=== PATIENT | female | born 1965 | race Caucasian/White ===

== ENCOUNTER 2017-05-05 13:11 | Observation (INO) | payer BC ==
--- NOTE | 2017-05-05 13:14 | PDOC ---
History of Present Illness - General Stated Complaint: WEAKNESS Time Seen by Provider: 05/05/17 13:14 Past History - Past Medical History Allergies/Adverse Reactions: Allergies Allergy/AdvReac Type Severity Reaction Status Date / Time No Known Allergies Allergy Verified 02/03/14 08:37 Home Medications: Ambulatory Orders Aspirin [ASA -] 81 mg PO DAILY 02/02/14 Benztropine Mesylate 1 mg PO BID 02/02/14 Divalproex [Depakote -] 1,500 mg PO HS 02/02/14 Divalproex [Depakote -] 500 mg PO DAILY 02/02/14 Olanzapine [Zyprexa] 10 mg PO HS 02/02/14 Olmesartan/Hydrochlorothiazide [Benicar Hct 20-12.5 mg Tablet] 1 each PO DAILY 02/02/14 Venlafaxine HCl ER [Effexor Xr -] 75 mg PO HS 02/02/14 Venlafaxine HCl ER [Effexor Xr -] 150 mg PO DAILY 02/02/14 Anemia: No Asthma: No Cancer: No Cardiac Disorders: No CVA: No COPD: No CHF: No Dementia: No Diabetes: No GI Disorders: No Disorders: No HTN: Yes Hypercholesterolemia: No Liver Disease: No Psychiatric Problems: Yes (BIPOLAR) Seizures: No Thyroid Disease: No - Surgical History Abdominal Surgery: No Appendectomy: No Cardiac Surgery: No Cholecystectomy: No Lung Surgery: No Neurologic Surgery: No Orthopedic Surgery: Yes (ARTHROSCOPY RT KNEE) - Immunization History Immunization Up to Date: Yes - Suicide/Smoking/Psychosocial Hx Smoking Status: No Smoking History: Never smoked Number of Cigarettes Smoked Daily: 0 Hx Alcohol Use: Yes (OCCASIONAL) Drug/Substance Use Hx: No Substance Use Type: Alcohol Hx Substance Use Treatment: No
--- NOTE | 2017-05-05 13:14 | PDOC ---
History of Present Illness - General Stated Complaint: WEAKNESS Time Seen by Provider: 05/05/17 13:14 - History of Present Illness Initial Comments: 05/05/17 13:14 Ms. Bernard is a 51 year old female with a significant past medical history of hypertension, morbid obesity, and Bipolar Disorder who presents to the emergency department from PCP after experiencing palpitations and high blood pressure to the 210's and 200's systolic earlier today. She reports that she was at work when her palpitations started and then presented to the school nurse who took her blood pressure. She experienced some dizziness at this time. She then went to her PCP for evaluation who advised follow-up at the ER. She also reports some increased frequency lately when peeing. The patient denies chest pain, shortness of breath, and headache. Denies fever, chills, nausea, vomit, diarrhea and constipation. Denies dysuria, urgency and hematuria. Allergies: NKDA Past History - Past Medical History Allergies/Adverse Reactions: Allergies Allergy/AdvReac Type Severity Reaction Status Date / Time No Known Allergies Allergy Verified 05/05/17 13:32 Home Medications: Ambulatory Orders Benztropine Mesylate 1 mg PO BID 02/02/14 Divalproex [Depakote -] 1,500 mg PO HS 02/02/14 Divalproex [Depakote -] 500 mg PO DAILY 02/02/14 Olanzapine [Zyprexa] 10 mg PO DAILY 02/02/14 Venlafaxine HCl ER [Effexor Xr -] 150 mg PO BID 02/02/14 Azilsartan Med/Chlorthalidone [Edarbyclor 40-12.5 mg Tablet] 1 each PO DAILY 05/12 Anemia: No Asthma: No Cancer: No Cardiac Disorders: No CVA: No COPD: No CHF: No Dementia: No Diabetes: No GI Disorders: No Disorders: No HTN: Yes Hypercholesterolemia: No Liver Disease: No Psychiatric Problems: Yes (BIPOLAR) Seizures: No Thyroid Disease: No - Surgical History Abdominal Surgery: No Appendectomy: No Cardiac Surgery: No Cholecystectomy: No Lung Surgery: No Neurologic Surgery: No Orthopedic Surgery: Yes (ARTHROSCOPY RT KNEE) - Immunization History Immunization Up to Date: Yes - Suicide/Smoking/Psychosocial Hx Smoking Status: No Smoking History: Never smoked Number of Cigarettes Smoked Daily: 0 Hx Alcohol Use: Yes (OCCASIONAL) Drug/Substance Use Hx: No Substance Use Type: Alcohol Hx Substance Use Treatment: No Review of Systems - Review of Systems Comments:: 05/05/17 13:14 GENERAL/CONSTITUTIONAL: No fever or chills. No weakness. HEAD, EYES, EARS, NOSE AND THROAT: No change in vision. No ear pain or discharge. No sore throat. CARDIOVASCULAR: +Heart racing and palpitations reported as of this morning. No chest pain or shortness of breath RESPIRATORY: No cough, wheezing, or hemoptysis. GASTROINTESTINAL: No nausea, vomiting, diarrhea or constipation. GENITOURINARY: +Increased frequency lately with odor. No dysuria MUSCULOSKELETAL: No joint or muscle swelling or pain. No neck or back pain. SKIN: No rash NEUROLOGIC: No headache, vertigo, loss of consciousness, or change in strength/ sensation. ENDOCRINE: No increased thirst. No abnormal weight change HEMATOLOGIC/LYMPHATIC: No anemia, easy bleeding, or history of blood clots. ALLERGIC/IMMUNOLOGIC: No hives or skin allergy. *Physical Exam - Physical Exam Comments: 05/05/17 13:14 GENERAL: Awake, alert, and fully oriented, in no acute distress HEAD: No signs of trauma, normocephalic, atraumatic EYES: PERRLA, EOMI, sclera anicteric, conjunctiva clear ENT: Auricles normal inspection, hearing grossly normal, nares patent, oropharynx clear without exudates. Moist mucosa NECK: Normal ROM, supple, no lymphadenopathy, JVD, or masses LUNGS: No distress, speaks full sentences, clear to auscultation bilaterally HEART: +Tachycardic, normal S1 and S2, no murmurs, rubs or gallops, peripheral pulses normal and equal bilaterally. ABDOMEN: Soft, nontender, normoactive bowel sounds. No guarding, no rebound. No masses EXTREMITIES: Normal inspection, Normal range of motion, no edema. No clubbing or cyanosis. NEUROLOGICAL: Cranial nerves II through XII grossly intact. Normal speech, normal gait, no focal sensorimotor deficits SKIN: Warm, Dry, normal turgor, no rashes or lesions noted. ED Treatment Course - LABORATORY CBC & Chemistry Diagram: 05/05/17 14:00 05/05/17 14:00 Medical Decision Making - Medical Decision Making 05/05/17 14:55 Patient presents complaining of palpitations and high blood pressure earlier today. Reports has had increased urinary frequency and altered odor lately however UA clear. Labs as below. Case discussed with PCP onsite who would like admit for carotid doppler. Will follow recommendations. Laboratory Results - last 24 hr 05/05/17 05/05/17 05/05/17 14:00 14:00 14:00 WBC 7.0 RBC 4.77 Hgb 13.5 D Hct 40.4 MCV 84.6 MCH 28.4 MCHC 33.6 RDW 13.8 Plt Count 275 MPV 7.8 D Neutrophils % 63.9 Lymphocytes % 26.1 Monocytes % 7.9 Eosinophils % 1.4 Basophils % 0.7 Sodium 134 L Potassium 4.1 Chloride 96 L Carbon Dioxide 25 D Anion Gap 13 BUN 15 D Creatinine 0.5 L Creat Clearance w eGFR > 60 Random Glucose 94 Lactic Acid Calcium 9.3 Magnesium Total Bilirubin 0.3 D AST 17 D ALT 31 D Alkaline Phosphatase 78 Troponin I B-Natriuretic Peptide Total Protein 7.7 Albumin 3.9 TSH Urine Color Ltyellow Urine Appearance Slcloudy Urine pH 7.0 D Urine Protein Negative Urine Glucose (UA) Negative Urine Ketones Negative Urine Blood Negative Urine Nitrite Negative Urine Bilirubin Negative Urine Urobilinogen Negative 05/05/17 05/05/17 05/05/17 14:00 14:00 14:00 WBC RBC Hgb Hct MCV MCH MCHC RDW Plt Count MPV Neutrophils % Lymphocytes % Monocytes % Eosinophils % Basophils % Sodium Potassium Chloride Carbon Dioxide Anion Gap BUN Creatinine Creat Clearance w eGFR Random Glucose Lactic Acid 2.2 H* Calcium Magnesium 1.9 Total Bilirubin AST ALT Alkaline Phosphatase Troponin I < 0.02 B-Natriuretic Peptide 37.75 Total Protein Albumin TSH 1.86 Urine Color Urine Appearance Urine pH Urine Protein Urine Glucose (UA) Urine Ketones Urine Blood Urine Nitrite Urine Bilirubin Urine Urobilinogen 05/05/17 15:01 *DC/Admit/Observation/Transfer Diagnosis at time of Disposition: Tachycardia, Hypertensive emergency - Discharge Dispostion Admit: Yes - Referrals Referrals: Liliana Mckinnon MD [Primary Care Provider] -
--- NOTE | 2017-05-05 13:37 | PDOC ---
Attending Attestation - Resident Resident Name: Edgar Clements - ED Attending Attestation I have performed the following: I have examined & evaluated the patient, The case was reviewed & discussed with the resident, I agree w/resident's findings & plan, Exceptions are as noted - HPI HPI: 05/05/17 13:34 51yo F hx HTN, bipolar d/o, anxiety, depression p/w palpitations and chest pain since this morning. 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 She went to Dr. Mckinnon's office where she was found to be tachycardic to 120s and sent to the ED for admission. Pt currently denies CP or SOB. She adds that she has had malodorous urine for 3 days. Denies f/v, abd pain, LE edema, rashes, focal weakness or numbness - Physicial Exam PE: 05/05/17 13:36 GENERAL: Awake, alert, and fully oriented, in no acute distress HEAD: No signs of trauma EYES: PERRLA, EOMI, sclera anicteric, conjunctiva clear ENT: Auricles normal inspection, hearing grossly normal, nares patent, oropharynx clear without exudates. Moist mucosa NECK: Normal ROM, supple, no lymphadenopathy, JVD, or masses LUNGS: Breath sounds equal, clear to auscultation bilaterally. No wheezes, and no crackles HEART: tachy to 118 but regular, normal S1 and S2, no murmurs, rubs or gallops ABDOMEN: Soft, nontender, normoactive bowel sounds. No guarding, no rebound. No masses EXTREMITIES: Normal range of motion, no edema. No clubbing or cyanosis. No cords, erythema, or tenderness NEUROLOGICAL: Normal speech, cranial nerves intact, negative pronator drift, 5/ 5 strength in all 4 extremities, normal sensation to light touch in all 4 extremities, normal cerebellar exam, normal gait, normal reflexes and tone SKIN: Warm, Dry, normal turgor, no rashes or lesions noted. - Medical Decision Making 05/05/17 16:08 51-year-old female with a history of hypertension and bipolar disorder presents with hypertension and tachycardia to the 110s at her primary doctor's office. Patient also has complaints of chest pain and shortness of breath this morning. Dr. Mckinnon currently at the bedside and will admit the patient for further management. -labs -CXR -IVF -admit Case discussed in detail with admitting physician including history, physical exam and ancillary studies. Admitting physician has assumed care for the patient, will follow all pending diagnostics and will complete the evaluation and treatment.
[2017-05-05 14:06] LABS: BASOPHIL 0.7 % (0-2.0); EOSINOPHIL 1.4 % (0-4.5); MCH 28.4 pg (25.7-33.7); MCHC 33.6 g/dl (32.0-36.0); MEAN CELL VOLUME 84.6 fl (80-96); MEAN PLT VOLUME 7.8 fl (7.5-11.1); NEUTROPHILS 63.9 % (42.8-82.8); PLATELET COUNT 275 K/MM3 (134-434); RDW 13.8 % (11.6-15.6)
[2017-05-05 14:19] LABS: URINE APPEARANCE SLCLOUDY; URINE BILIRUBIN NEGATIVE (NEGATIVE); URINE BLOOD NEGATIVE (NEGATIVE); URINE COLOR LTYELLOW; URINE GLUCOSE (UA) NEGATIVE (NEGATIVE); URINE KETONE NEGATIVE (NEGATIVE); URINE NITRITE NEGATIVE (NEGATIVE); URINE PROTEIN NEGATIVE (NEGATIVE); URINE UROBILINOGEN NEGATIVE mg/dL (0.2-1.0)
[2017-05-05 14:31] LABS: ALBUMIN 3.9 g/dl (3.4-5.0); ANION GAP 13 (8-16); CALCIUM 9.3 mg/dL (8.5-10.1); CO2 25 mmol/L (21-32); CREATININE 0.5 mg/dL (0.55-1.02); GLUCOSE,RANDOM 94 mg/dL (74-106); MAGNESIUM 1.9 mg/dL (1.8-2.4); SGOT/AST 17 U/L (15-37)
[2017-05-05 14:32] LABS: TROPONIN I < 0.02 ng/ml (0.00-0.05)
[2017-05-05 14:39] LABS: ALK PHOS 78 U/L (45-117); BILIRUBIN,TOTAL 0.3 mg/dL (0.2-1.0); TOT PROT 7.7 g/dl (6.4-8.2)
--- NOTE | 2017-05-05 14:42 | HP ---
Admitting History and Physical - Primary Care Physician PCP: Liliana Mckinnon - Admission Chief Complaint: HTN EMERGENCY/CHEST PAIN History of Present Illness: SENT FROM MY OFFICE WITH HTN BP 180/110MMHG WITH CHEST PAIN AND TACHYCARDIA 140/ MIN, HISTORY HTN, LIPIDEMIA, DEPRESSION,ANXIETY. History Source: Patient - Past Medical History Cardiovascular: Yes: HTN, Hyperlipdemia ...LMP: 01/01/14 Psych: Yes: Anxiety - Smoking History Smoking history: Never smoked Aproximately how many cigarettes per day: 0 - Alcohol/Substance Use Hx Alcohol Use: Yes (OCCASIONAL) Home Medications - Allergies Allergies/Adverse Reactions: Allergies Allergy/AdvReac Type Severity Reaction Status Date / Time No Known Allergies Allergy Verified 05/05/17 13:32 - Home Medications Home Medications: Ambulatory Orders Benztropine Mesylate 1 mg PO BID 02/02/14 Divalproex [Depakote -] 1,500 mg PO HS 02/02/14 Divalproex [Depakote -] 500 mg PO DAILY 02/02/14 Olanzapine [Zyprexa] 10 mg PO DAILY 02/02/14 Venlafaxine HCl ER [Effexor Xr -] 150 mg PO BID 02/02/14 Azilsartan Med/Chlorthalidone [Edarbyclor 40-12.5 mg Tablet] 1 each PO DAILY 05/12 Review of Systems - Review of Systems Constitutional: reports: Diaphoresis Eyes: reports: Blurred Vision HENT: reports: No Symptoms Neck: reports: No Symptoms Cardiovascular: reports: Chest Pain, Palpitations, Shortness of Breath Respiratory: reports: SOB Gastrointestinal: reports: No Symptoms Genitourinary: reports: No Symptoms Musculoskeletal: reports: No Symptoms Integumentary: reports: No Symptoms Neurological: reports: Headache Endocrine: reports: No Symptoms Hematology/Lymphatic: reports: No Symptoms Psychiatric: reports: No Symptoms Physical Examination Vital Signs: Vital Signs Temperature 98.1 F 05/05/17 13:12 Pulse Rate 116 H 05/05/17 13:12 Respiratory Rate 22 05/05/17 13:12 Blood Pressure 167/93 05/05/17 13:12 O2 Sat by Pulse Oximetry (%) 100 05/05/17 13:20 Constitutional: Yes: Moderate Distress Eyes: Yes: WNL HENT: Yes: WNL Neck: Yes: WNL Cardiovascular: Yes: Tachycardia, Murmur Respiratory: Yes: WNL Gastrointestinal: Yes: WNL Musculoskeletal: Yes: WNL Extremities: Yes: WNL Edema: No Peripheral Pulses WNL: Yes Integumentary: Yes: WNL Wound/Incision: Yes: Clean/Dry Neurological: Yes: WNL ...Motor Strength: WNL Psychiatric: Yes: Agitated Labs: CBC, BMP 05/05/17 14:00 05/05/17 14:00 Imaging - Results Chest X-ray: Report Reviewed Problem List - Problems (1) Tachycardia Code(s): R00.0 - TACHYCARDIA, UNSPECIFIED (2) Hypertensive emergency Code(s): I16.1 - HYPERTENSIVE EMERGENCY (3) Chest pain Code(s): R07.9 - CHEST PAIN, UNSPECIFIED Qualifiers: Chest pain type: chest pain on breathing Qualified Code(s): R07.1 - Chest pain on breathing; R07.1 - Chest pain on breathing; R07.81 - Pleurodynia Assessment/Plan OBSERVATION LIPID PANEL A1C ECHO CAROTID STRESS TEST CARDIOLOGY EVAL
[2017-05-05 14:43] LABS: SGPT/ALT 31 U/L (12-78)
[2017-05-05] MEDS ORDERED: ASPIRIN 81 MG CHEWABLE TABLETS PO ONE (14:43)
[2017-05-05] MEDS ORDERED: ACETAMINOPHEN 325 MG TABLET (FP) PO PRN (14:43)
[2017-05-05 14:54] LABS: THYROID STIMULATING HORMONE 1.86 uIU/ml (0.358-3.74)
[2017-05-05 15:22] LABS: CHOLESTEROL 237 mg/dL (50-200)
[2017-05-05] MEDS ORDERED: ASPIRIN 81 MG CHEWABLE TABLETS ONE (16:07)
[2017-05-05] MEDS ORDERED: RANITIDINE HCL 150 MG TABLET (FP) ONE (16:07)
[2017-05-05] MEDS: RANITIDINE HCL 150 MG TABLET (FP) PO SCH (16:15)
[2017-05-05 17:57] VITALS: BMI 31.3
[2017-05-05 20:00] LABS: URINE LEUK ESTERASE TRACE (NEGATIVE)
[2017-05-05 20:11] LABS: CPK 214 IU/L (26-192); TROPONIN I < 0.02 ng/ml (0.00-0.05)
--- NOTE | 2017-05-05 21:44 | EKG ---
Test Reason : Blood Pressure : / mmHG Vent. Rate : 118 BPM Atrial Rate : 118 BPM P-R Int : 158 ms QRS Dur : 080 ms QT Int : 320 ms P-R-T Axes : 056 011 028 degrees QTc Int : 448 ms SINUS TACHYCARDIA NONSPECIFIC ST DEPRESSION WHEN COMPARED WITH ECG OF 16-JUN-2013 10:56, REPEAT EKG IF CLINICALLY INDICATED Confirmed by SHERIF ZIEGLER MD ([id number]) on 05/05/2017 9:44:36 PM Referred By: Confirmed By:SHERIF ZIEGLER MD
[2017-05-05 22:05] LABS: BASOPHIL 0.8 % (0-2.0); EOSINOPHIL 1.8 % (0-4.5); MCH 29.1 pg (25.7-33.7); MEAN CELL VOLUME 85.5 fl (80-96); MEAN PLT VOLUME 8.3 fl (7.5-11.1); PLATELET COUNT 303 K/MM3 (134-434); RDW 14.3 % (11.6-15.6); WHITE BLOOD COUNT 7.4 K/mm3 (4.0-10.0)
[2017-05-05] MEDS: OLANZapine 10 MG TABLET PO SCH (22:15)
[2017-05-05] MEDS: BENZTROPINE MESYLATE 1 MG TABLET (FP) PO SCH (22:15)
[2017-05-05] MEDS: ATORVASTATIN CA 10 MG TABLET (FP) PO SCH (22:15)
[2017-05-05] MEDS: DIVALPROEX SODIUM 250 MG TABLET E.C. (FP) PO SCH (22:15)
[2017-05-05] MEDS ORDERED: cefTRIAXone SODIUM 1 GM VIAL IM ONE (22:44)
[2017-05-05] MEDS ORDERED: CEFTRIAXONE 1 G/50 ML PREMIX 50 ML IVPB ONE (23:00)
[2017-05-05 23:04] LABS: URINE BACTERIA MODERATE /hpf (NEGATIVE)
[2017-05-06] MEDS ORDERED: DIPYRIDAMOLE STRESS TEST 50 MG in DEXTROSE 5%-WATER - 40 ML IVPB ONE (09:30)
[2017-05-06] MEDS ORDERED: VENLAFAXINE HCL 150 MG E.R. CAPSULE PO SCH (10:00)
[2017-05-06] MEDS: BENZTROPINE MESYLATE 1 MG TABLET (FP) PO SCH ×2 (10:17→21:25)
[2017-05-06] MEDS: DIVALPROEX SODIUM 500 MG TABLET E.C. PO SCH (10:18)
[2017-05-06] MEDS: RANITIDINE HCL 150 MG TABLET (FP) PO SCH (10:18)
--- NOTE | 2017-05-06 11:13 | CON.GU ---
Consult Consult Specialty:: Referred by:: Ino Reason for Consultation:: UTI, sepsis - History of Present Illness Chief Complaint: UTI, sepsis History of Present Illness: 51 year old female admitted to with chest pain and hypertension. She was noted to have elevated lactic acid and bacturia on admission. She denies and history and has no specific urinary complaints. WBC is 7. No fevers. - History Source History Provided By: Patient, Medical Record Limitations to Obtaining History: No Limitations - Past Medical History Cardio/Vascular: Yes: HTN, Hyperlipdemia Renal/: No: Renal Failure, Renal Inusuff, Cancer, Hematuria, Neurogenic Bladder, Renal Calculi, UTI ...LMP: 01/01/14 Psych: Yes: Anxiety - Alcohol/Substance Use Hx Alcohol Use: Yes (OCCASIONAL) - Smoking History Smoking history: Never smoked Aproximately how many cigarettes per day: 0 Home Medications - Allergies Allergies/Adverse Reactions: Allergies Allergy/AdvReac Type Severity Reaction Status Date / Time No Known Allergies Allergy Verified 05/05/17 13:32 - Home Medications Home Medications: Ambulatory Orders Benztropine Mesylate 1 mg PO BID 02/02/14 Divalproex [Depakote -] 1,500 mg PO HS 02/02/14 Divalproex [Depakote -] 500 mg PO DAILY 02/02/14 Olanzapine [Zyprexa] 10 mg PO DAILY 02/02/14 Venlafaxine HCl ER [Effexor Xr -] 150 mg PO BID 02/02/14 Azilsartan Med/Chlorthalidone [Edarbyclor 40-12.5 mg Tablet] 1 each PO DAILY 05/12 Review of Systems - Review of Systems Gastrointestinal: denies: No Symptoms, Abdominal Pain, Bloating, Constipation, Diarrhea, Dysphagia, Indigestion, Melena, Nausea, Rectal Bleeding, Vomiting, Vomiting Blood, Other Genitourinary: reports: No Symptoms. denies: Burning, Discharge, Dysuria, Flank Pain, Frequency, Hematuria, Incontinence Physical Exam- Vital Signs: Vital Signs Temperature 98 F 05/06/17 10:00 Pulse Rate 88 05/06/17 10:00 Respiratory Rate 20 05/06/17 10:00 Blood Pressure 133/76 05/06/17 10:00 O2 Sat by Pulse Oximetry (%) 96 05/06/17 06:00 Constitutional: Yes: Well Nourished, No Distress, Calm Gastrointestinal: Yes: WNL, Normal Bowel Sounds Renal/: Yes: WNL. No: Bladder Distention, CVA Tenderness - Left, CVA Tenderness - Right, Cormier Present, Hematuria, Incontinence Labs: CBC, BMP 05/05/17 21:30 Problem List - Problems (1) Bacteria in urine Assessment/Plan: No evidence of culture proven UTI or sepsis. No symptoms. no complaints. Reconsult as needed. Code(s): R82.71 - BACTERIURIA
[2017-05-06] MEDS: VALSARTAN 160 MG TABLET (UD) PO SCH (14:09)
[2017-05-06] MEDS: CHLORTHALIDONE 25 MG TABLET PO SCH (14:09)
[2017-05-06] MEDS: VENLAFAXINE HCL 75 MG E.R. CAPSULES (FP) PO SCH (14:09)
[2017-05-06] MEDS: ASPIRIN COATED 81 MG TABLET.EC PO SCH (14:09)
--- NOTE | 2017-05-06 15:38 | CON.ID ---
Consult Consult Specialty:: infectious diseases Reason for Consultation:: uti - History of Present Illness Chief Complaint: chest pain History of Present Illness: 51 year old female admitted to with chest pain and hypertension. She was noted to have elevated lactic acid and bacturia on admission. patients main c/o of chest pain though she does have some suprapubic discomfort patient currently feeling better patient denies fever or dysuria her urine report came back contaminated - History Source History Provided By: Patient, Family Member Limitations to Obtaining History: No Limitations - Past Medical History Cardio/Vascular: Yes: HTN, Hyperlipdemia Renal/: No: Renal Failure, Renal Inusuff, Cancer, Hematuria, Neurogenic Bladder, Renal Calculi, UTI ...LMP: 01/01/14 Psych: Yes: Anxiety - Alcohol/Substance Use Hx Alcohol Use: Yes (OCCASIONAL) - Smoking History Smoking history: Never smoked Aproximately how many cigarettes per day: 0 Home Medications - Allergies Allergies/Adverse Reactions: Allergies Allergy/AdvReac Type Severity Reaction Status Date / Time No Known Allergies Allergy Verified 05/05/17 13:32 - Home Medications Home Medications: Ambulatory Orders Benztropine Mesylate 1 mg PO BID 02/02/14 Divalproex [Depakote -] 1,500 mg PO HS 02/02/14 Divalproex [Depakote -] 500 mg PO DAILY 02/02/14 Olanzapine [Zyprexa] 10 mg PO DAILY 02/02/14 Venlafaxine HCl ER [Effexor Xr -] 150 mg PO BID 02/02/14 Azilsartan Med/Chlorthalidone [Edarbyclor 40-12.5 mg Tablet] 1 each PO DAILY 05/12 Review of Systems - Review of Systems Constitutional: reports: Weakness, Other Eyes: reports: No Symptoms HENT: reports: No Symptoms Neck: reports: No Symptoms Cardiovascular: reports: Chest Pain Respiratory: reports: No Symptoms Gastrointestinal: reports: No Symptoms Genitourinary: reports: No Symptoms Musculoskeletal: reports: No Symptoms Integumentary: reports: No Symptoms Neurological: reports: No Symptoms Endocrine: reports: No Symptoms Hematology/Lymphatic: reports: No Symptoms Psychiatric: reports: No Symptoms Physical Exam Vital Signs: Vital Signs Temperature 98 F 05/06/17 10:00 Pulse Rate 88 05/06/17 10:00 Respiratory Rate 20 05/06/17 10:00 Blood Pressure 133/76 05/06/17 10:00 O2 Sat by Pulse Oximetry (%) 96 05/06/17 06:00 Constitutional: Yes: Well Nourished, Calm, Mild Distress Eyes: Yes: Conjunctiva Clear Neck: Yes: Supple, Trachea Midline Cardiovascular: Yes: S1, S2 Respiratory: Yes: Regular Gastrointestinal: Yes: Normal Bowel Sounds, Soft Renal/: Yes: Other (suprapubic tenderness) Musculoskeletal: Yes: WNL Extremities: Yes: WNL Neurological: Yes: Alert, Oriented Psychiatric: Yes: Alert, Oriented Labs: CBC, BMP 05/05/17 21:30 Imaging - Results Chest X-ray: Report Reviewed, Image Reviewed Ultrasound: Report Reviewed, Image Reviewed Assessment/Plan Problem List - Problems (1) Tachycardia Code(s): R00.0 - TACHYCARDIA, UNSPECIFIED (2) Hypertensive emergency Code(s): I16.1 - HYPERTENSIVE EMERGENCY (3) Chest pain Code(s): R07.9 - CHEST PAIN, UNSPECIFIED Qualifiers: Chest pain type: chest pain on breathing Qualified Code(s): R07.1 - Chest pain on breathing; R07.1 - Chest pain on breathing; R07.81 - Pleurodynia (4) Bacteria in urine Assessment/Plan: No evidence of culture proven UTI or sepsis. No symptoms. no complaints. Reconsult as needed. Code(s): R82.71 - BACTERIURIA patient probably has asymptomatic bacteruria urine cx is contaminated plan will reorder urine will not start abx rest continue as per primary
[2017-05-06] MEDS ORDERED: CEFTRIAXONE 1 G/50 ML PREMIX 50 ML IVPB SCH (15:45)
[2017-05-06] MEDS ORDERED: CEFTRIAXONE 1 GM in DEXTROSE 5%-WATER - 50 ML IVPB SCH (15:45)
--- NOTE | 2017-05-06 15:49 | CON.CARD ---
Consult Consult Specialty:: Cardiology Referred by:: Ino Reason for Consultation:: chest pain. htn - History of Present Illness Chief Complaint: chest pain and htn History of Present Illness: 51 year old female with a pmhx of htn, hld, and bipolar disorder who presents with dizziness and htn and chest pain. As per patient, was at work and felt dizzy so checked hr bp and was 200/100 so went to pmd's office and bp was 180/ 110 and she received bp medication which than led to her feeling chest pain and tachycardia. No pnd, orthopnea, or edema. No palpitations. No chest pain or dyspnea at this time on the floor or with ambulation. No previous symptoms with exertion. - History Source History Provided By: Patient, Medical Record - Past Medical History Cardio/Vascular: Yes: HTN, Hyperlipdemia Renal/: No: Renal Failure, Renal Inusuff, Cancer, Hematuria, Neurogenic Bladder, Renal Calculi, UTI ...LMP: 01/01/14 Psych: Yes: Anxiety - Alcohol/Substance Use Hx Alcohol Use: Yes (OCCASIONAL) - Smoking History Smoking history: Never smoked Aproximately how many cigarettes per day: 0 Home Medications - Allergies Allergies/Adverse Reactions: Allergies Allergy/AdvReac Type Severity Reaction Status Date / Time No Known Allergies Allergy Verified 05/05/17 13:32 - Home Medications Home Medications: Ambulatory Orders Benztropine Mesylate 1 mg PO BID 02/02/14 Divalproex [Depakote -] 1,500 mg PO HS 02/02/14 Divalproex [Depakote -] 500 mg PO DAILY 02/02/14 Olanzapine [Zyprexa] 10 mg PO DAILY 02/02/14 Venlafaxine HCl ER [Effexor Xr -] 150 mg PO BID 02/02/14 Azilsartan Med/Chlorthalidone [Edarbyclor 40-12.5 mg Tablet] 1 each PO DAILY 05/12 Vital Signs: Vital Signs Temperature 98 F 05/06/17 10:00 Pulse Rate 88 05/06/17 10:00 Respiratory Rate 20 05/06/17 10:00 Blood Pressure 133/76 05/06/17 10:00 O2 Sat by Pulse Oximetry (%) 96 05/06/17 06:00 - Other Data Labs, Other Data: CBC, BMP 10/10/17 21:30 Troponin, BNP 05/05/17 19:20 Troponin I < 0.02 Troponin, BNP 05/05/17 19:20 Troponin I < 0.02 Imaging - Results Chest X-ray: Report Reviewed EKG: Image Reviewed Problem List - Problems (1) Chest pain Code(s): R07.9 - CHEST PAIN, UNSPECIFIED Qualifiers: Chest pain type: chest pain on breathing Qualified Code(s): R07.1 - Chest pain on breathing; R07.1 - Chest pain on breathing; R07.81 - Pleurodynia Assessment/Plan 51 year old female with a pmhx of htn, hld, and bipolar disorder who presents with dizziness and htn and chest pain. 1) Chest pain Likely was due to htn episode EKG: sinus tachycardia at 118bpm, nl axis, no significant st changes Echocardiogram with normal lvef but cannot asses valves. No murmurs on exam NST with no ischemia CE's negative Symptom free with ambulation today No further cardiac work up at this time. Carotid ultrasound no stenosis 2) HTN much improved on valsartan 320mg and chlorthalidone Continue and add additional agent such as amlodipine if needed.
[2017-05-06] MEDS: DIVALPROEX SODIUM 250 MG TABLET E.C. (FP) PO SCH (21:23)
[2017-05-06] MEDS: OLANZapine 10 MG TABLET PO SCH (21:24)
[2017-05-06] MEDS: ATORVASTATIN CA 10 MG TABLET (FP) PO SCH (21:25)
[2017-05-06] MEDS ORDERED: ONDANSETRON 4 MG/2 ML VIAL IVPB PRN (21:30)
[2017-05-06] MEDS ORDERED: VANCOMYCIN 1,250 MG in DEXTROSE 5%-WATER - 250 ML IVPB ONE (23:00)
--- NOTE | 2017-05-07 06:51 | PN ---
Progress Note, Physician Chief Complaint: AWAKE COMFORTABLE AWAITING STRESS TEST - Current Medication List Current Medications: Active Medications Acetaminophen (Tylenol -) 650 mg PO Q6H PRN PRN Reason: FEVER OR PAIN Aspirin (Ecotrin -) 81 mg PO DAILY [facility] Last Admin: 05/06/17 14:09 Dose: 81 mg Atorvastatin Calcium (Lipitor -) 10 mg PO HS [facility] Last Admin: 05/06/17 21:25 Dose: 10 mg Benztropine Mesylate (Cogentin -) 1 mg PO BID [facility] Last Admin: 05/06/17 21:25 Dose: 1 mg Chlorthalidone (Hygroton -) 25 mg PO DAILY [facility] Last Admin: 05/06/17 14:09 Dose: 25 mg Divalproex Sodium (Depakote -) 500 mg PO DAILY [facility] Last Admin: 05/06/17 10:18 Dose: 500 mg Divalproex Sodium (Depakote -) 1,500 mg PO HS [facility] Last Admin: 05/06/17 21:23 Dose: 1,500 mg Olanzapine (Zyprexa -) 10 mg PO HS [facility] Last Admin: 05/06/17 21:24 Dose: 10 mg Ondansetron HCl (Zofran Injection) 4 mg IVPB Q6H PRN PRN Reason: NAUSEA AND/OR VOMITING Ranitidine HCl (Zantac -) 150 mg PO DAILY [facility] Last Admin: 05/06/17 10:18 Dose: 150 mg Valsartan (Diovan -) 320 mg PO DAILY [facility] Last Admin: 05/06/17 14:09 Dose: 320 mg Venlafaxine HCl (Effexor Xr -) 150 mg PO DAILY [facility] Last Admin: 05/06/17 14:09 Dose: 150 mg - Objective Vital Signs: Vital Signs Temperature 98.6 F 05/07/17 05:44 Pulse Rate 77 05/07/17 05:44 Respiratory Rate 20 05/07/17 05:44 Blood Pressure 141/84 05/07/17 05:44 O2 Sat by Pulse Oximetry (%) 97 05/07/17 00:17 Constitutional: Yes: Mild Distress Eyes: Yes: WNL HENT: Yes: WNL Neck: Yes: WNL Cardiovascular: Yes: Pulse Irregular Respiratory: Yes: WNL Genitourinary: Yes: WNL Musculoskeletal: Yes: WNL Extremities: Yes: WNL Edema: Yes Edema: LLE: Trace, RLE: Trace Peripheral Pulses WNL: Yes Integumentary: Yes: WNL Wound/Incision: Yes: Clean/Dry Neurological: Yes: WNL ...Motor Strength: WNL Psychiatric: Yes: WNL Labs: CBC, BMP 05/05/17 21:30 Problem List - Problems (1) Tachycardia Code(s): R00.0 - TACHYCARDIA, UNSPECIFIED (2) Hypertensive emergency Code(s): I16.1 - HYPERTENSIVE EMERGENCY (3) Chest pain Code(s): R07.9 - CHEST PAIN, UNSPECIFIED Qualifiers: Chest pain type: chest pain on breathing Qualified Code(s): R07.1 - Chest pain on breathing; R07.1 - Chest pain on breathing; R07.81 - Pleurodynia Assessment/Plan AWAIT STRESS TEST KEEP ON TELEMETRY FOR MONITORING DC PLANNING TOMORROW
[2017-05-07] MEDS: ASPIRIN COATED 81 MG TABLET.EC PO SCH (09:16)
[2017-05-07] MEDS: VENLAFAXINE HCL 75 MG E.R. CAPSULES (FP) PO SCH ×2 (09:17→14:34)
[2017-05-07] MEDS: DIVALPROEX SODIUM 500 MG TABLET E.C. PO SCH ×2 (09:17→14:34)
[2017-05-07] MEDS: VALSARTAN 160 MG TABLET (UD) PO SCH (09:17)
[2017-05-07] MEDS: RANITIDINE HCL 150 MG TABLET (FP) PO SCH (09:17)
[2017-05-07] MEDS: CHLORTHALIDONE 25 MG TABLET PO SCH ×2 (09:18→14:34)
[2017-05-07] MEDS: BENZTROPINE MESYLATE 1 MG TABLET (FP) PO SCH ×2 (09:18→14:34)
--- NOTE | 2017-05-07 11:21 | DS ---
Physical Examination Vital Signs: Vital Signs Temperature 97.3 F L 05/07/17 10:00 Pulse Rate 105 H 05/07/17 10:00 Respiratory Rate 20 05/07/17 10:00 Blood Pressure 157/90 05/07/17 10:00 O2 Sat by Pulse Oximetry (%) 97 05/07/17 09:00 Findings/Remarks: AWAKE ALERT FEELING BETTER Constitutional: Yes: No Distress Eyes: Yes: WNL HENT: Yes: WNL Neck: Yes: WNL Cardiovascular: Yes: WNL Respiratory: Yes: WNL Gastrointestinal: Yes: WNL Renal/: Yes: WNL Musculoskeletal: Yes: WNL Extremities: Yes: WNL Edema: No Peripheral Pulses WNL: Yes Integumentary: Yes: WNL Wound/Incision: Yes: Clean/Dry Neurological: Yes: WNL ...Motor Strength: WNL Psychiatric: Yes: WNL Labs: CBC, BMP 05/05/17 21:30 Discharge Summary Reason For Visit: HYPERTENSIVE EMERGENCY; TACHYCARDIA Current Active Problems Bacteria in urine (Acute) Chest pain (Acute) Hypertensive emergency (Acute) Tachycardia (Acute) Procedures: Principal: STRESS TEST Other Procedures: ECHO/CAROTID Hospital Course: ADMITTED FOR ACUTE CORONARY SYNDROME, STRESS TEST NORMAL, ECHO NORMAL, HYPERTENSIVE CRISIS, NOW STABLE. WILL CHECK 24 HOUR VMA/CATECHOLAMINE, F/U OUTPATIENT Condition: Improved - Instructions Diet, Activity, Other Instructions: LOW SODIUM/LOW FAT SEE DR MCKINNON 1 WEEK Referrals: Liliana Mckinnon MD [Primary Care Provider] - Disposition: HOME - Home Medications Comprehensive Discharge Medication List: Ambulatory Orders Benztropine Mesylate 1 mg PO BID 02/02/14 Divalproex [Depakote -] 1,500 mg PO HS 02/02/14 Divalproex [Depakote -] 500 mg PO DAILY 02/02/14 Olanzapine [Zyprexa] 10 mg PO DAILY 02/02/14 Venlafaxine HCl ER [Effexor Xr -] 150 mg PO BID 02/02/14 Azilsartan Med/Chlorthalidone [Edarbyclor 40-12.5 mg Tablet] 1 each PO DAILY 05/12 Acetaminophen [Tylenol .Regular Strength -] 650 mg PO Q6H PRN #0 tablet Aspirin Coated [Ecotrin -] 81 mg PO DAILY #30 tab 05/07/17 Atorvastatin Ca [Lipitor] 10 mg PO HS #30 tablet 05/07/17 Benztropine Mesylate [Cogentin -] 1 mg PO BID #30 tablet 05/07/17 Divalproex [Depakote -] 1,500 mg PO HS tab 05/07/17 Olanzapine [ZyPREXA -] 10 mg PO HS tablet 05/07/17 Ranitidine [Zantac -] 150 mg PO DAILY #30 tablet 05/07/17
--- NOTE | 2017-05-07 12:34 | PN ---
Progress Note, Physician Chief Complaint: No complaints Tele: sinus with no events History of Present Illness: 51 year old female with a pmhx of htn, hld, and bipolar disorder who presents with dizziness and htn and chest pain. As per patient, was at work and felt dizzy so checked hr bp and was 200/100 so went to pmd's office and bp was 180/ 110 and she received bp medication which than led to her feeling chest pain and tachycardia. No pnd, orthopnea, or edema. No palpitations. No chest pain or dyspnea at this time on the floor or with ambulation. No previous symptoms with exertion. - Current Medication List Current Medications: Active Medications Acetaminophen (Tylenol -) 650 mg PO Q6H PRN PRN Reason: FEVER OR PAIN Aspirin (Ecotrin -) 81 mg PO DAILY [facility] Last Admin: 05/07/17 09:16 Dose: 81 mg Atorvastatin Calcium (Lipitor -) 10 mg PO HS [facility] Last Admin: 05/06/17 21:25 Dose: 10 mg Benztropine Mesylate (Cogentin -) 1 mg PO BID [facility] Last Admin: 05/07/17 09:18 Dose: Not Given Chlorthalidone (Hygroton -) 25 mg PO DAILY [facility] Last Admin: 05/07/17 09:18 Dose: Not Given Divalproex Sodium (Depakote -) 500 mg PO DAILY [facility] Last Admin: 05/07/17 09:17 Dose: Not Given Divalproex Sodium (Depakote -) 1,500 mg PO HS [facility] Last Admin: 05/06/17 21:23 Dose: 1,500 mg Olanzapine (Zyprexa -) 10 mg PO [facility] Last Admin: 05/06/17 21:24 Dose: 10 mg Ondansetron HCl (Zofran Injection) 4 mg IVPB Q6H PRN PRN Reason: NAUSEA AND/OR VOMITING Ranitidine HCl (Zantac -) 150 mg PO DAILY [facility] Last Admin: 05/07/17 09:17 Dose: 150 mg Valsartan (Diovan -) 320 mg PO DAILY [facility] Last Admin: 05/07/17 09:17 Dose: 320 mg Venlafaxine HCl (Effexor Xr -) 150 mg PO DAILY [facility] Last Admin: 05/07/17 09:17 Dose: Not Given - Objective Vital Signs: Vital Signs Temperature 97.3 F L 05/07/17 10:00 Pulse Rate 105 H 05/07/17 10:00 Respiratory Rate 20 05/07/17 10:00 Blood Pressure 157/90 05/07/17 10:00 O2 Sat by Pulse Oximetry (%) 97 05/07/17 09:00 Constitutional: Yes: No Distress Neck: Yes: Supple Cardiovascular: Yes: Regular Rate and Rhythm, S1, S2. No: Bruit, JVD Respiratory: Yes: CTA Bilaterally Gastrointestinal: Yes: Normal Bowel Sounds, Soft Edema: No Labs: CBC, BMP 05/05/17 21:30 Problem List - Problems (1) Chest pain Code(s): R07.9 - CHEST PAIN, UNSPECIFIED Qualifiers: Chest pain type: chest pain on breathing Qualified Code(s): R07.1 - Chest pain on breathing; R07.1 - Chest pain on breathing; R07.81 - Pleurodynia Assessment/Plan 51 year old female with a pmhx of htn, hld, and bipolar disorder who presents with dizziness and htn and chest pain. 1) Chest pain Likely was due to htn episode EKG: sinus tachycardia at 118bpm, nl axis, no significant st changes Echocardiogram with normal lvef but cannot asses valves. No murmurs on exam NST with no ischemia CE's negative Symptom free with ambulation since episode No further cardiac work up at this time. Carotid ultrasound no stenosis 2) HTN much improved on On increased dose of arb...valsartan 320mg and chlorthalidone Systolic bp's borderline. If remains mildly elevated would start low dose amlodipine Will sign off at this time. Please call with any questions.
[2017-05-07 14:53] VITALS: BP 147/80; PULSE 89; TEMP 98.2
--- NOTE | 2017-05-07 15:01 | PN ---
Progress Note, Physician History of Present Illness: doing well no issues - Current Medication List Current Medications: Active Medications Acetaminophen (Tylenol -) 650 mg PO Q6H PRN PRN Reason: FEVER OR PAIN Aspirin (Ecotrin -) 81 mg PO DAILY [facility] Last Admin: 05/07/17 09:16 Dose: 81 mg Atorvastatin Calcium (Lipitor -) 10 mg PO HS [facility] Last Admin: 05/06/17 21:25 Dose: 10 mg Benztropine Mesylate (Cogentin -) 1 mg PO BID [facility] Last Admin: 05/07/17 14:34 Dose: 1 mg Chlorthalidone (Hygroton -) 25 mg PO DAILY [facility] Last Admin: 05/07/17 14:34 Dose: 25 mg Divalproex Sodium (Depakote -) 500 mg PO DAILY [facility] Last Admin: 05/07/17 14:34 Dose: 500 mg Divalproex Sodium (Depakote -) 1,500 mg PO HS [facility] Last Admin: 05/06/17 21:23 Dose: 1,500 mg Olanzapine (Zyprexa -) 10 mg PO HS [facility] Last Admin: 05/06/17 21:24 Dose: 10 mg Ondansetron HCl (Zofran Injection) 4 mg IVPB Q6H PRN PRN Reason: NAUSEA AND/OR VOMITING Ranitidine HCl (Zantac -) 150 mg PO DAILY [facility] Last Admin: 05/07/17 09:17 Dose: 150 mg Valsartan (Diovan -) 320 mg PO DAILY [facility] Last Admin: 05/07/17 09:17 Dose: 320 mg Venlafaxine HCl (Effexor Xr -) 150 mg PO DAILY [facility] Last Admin: 05/07/17 14:34 Dose: 150 mg - Objective Vital Signs: Vital Signs Temperature 98.2 F 05/07/17 14:00 Pulse Rate 89 05/07/17 14:00 Respiratory Rate 20 05/07/17 14:00 Blood Pressure 147/80 05/07/17 14:00 O2 Sat by Pulse Oximetry (%) 97 05/07/17 09:00 Constitutional: Yes: No Distress, Calm Cardiovascular: Yes: Regular Rate and Rhythm Respiratory: Yes: Regular, CTA Bilaterally Gastrointestinal: Yes: Normal Bowel Sounds, Soft Musculoskeletal: Yes: WNL Extremities: Yes: WNL Neurological: Yes: Alert, Oriented Psychiatric: Yes: Alert Labs: CBC, BMP 05/05/17 21:30 Assessment/Plan Problem List - Problems (1) Tachycardia Code(s): R00.0 - TACHYCARDIA, UNSPECIFIED (2) Hypertensive emergency Code(s): I16.1 - HYPERTENSIVE EMERGENCY (3) Chest pain Code(s): R07.9 - CHEST PAIN, UNSPECIFIED Qualifiers: Chest pain type: chest pain on breathing Qualified Code(s): R07.1 - Chest pain on breathing; R07.1 - Chest pain on breathing; R07.81 - Pleurodynia (4) Bacteria in urine Assessment/Plan: No evidence of culture proven UTI or sepsis. No symptoms. no complaints. Reconsult as needed. Code(s): R82.71 - BACTERIURIA plan blood cx result noted probably a contaminant patient going to follow with primary rest continue current mgmt
== END 2017-05-07 18:25 | disposition home or self-care (01) ==
LOC: JER 13:11 → JERBED 14:54 → J4W 18:19
PROVIDERS: ADMIT Family Medicine; ATTEND Family Medicine
PROC: 3E03329 Introduction of Other Anti-infective into Peripheral Vein, Percutaneous Approach (ICD-10-PCS; principal; 2017-05-05)
PROC: 3E033GC Introduction of Other Therapeutic Substance into Peripheral Vein, Percutaneous Approach (ICD-10-PCS; 2017-05-05)
DX: I16.1 Hypertensive emergency (principal); R00.0 Tachycardia, unspecified; R07.9 Chest pain, unspecified; R82.71 Bacteriuria; E66.01 Morbid (severe) obesity due to excess calories; Z68.31 Body mass index [BMI] 31.0-31.9, adult; E78.5 Hyperlipidemia, unspecified; F31.9 Bipolar disorder, unspecified; F41.9 Anxiety disorder, unspecified
CPT/HCPCS: 36415; 71020-TC; 78452-TC; 80053; 80061; 81003; 81015; 82384; 82533; 82550; 82553; 82570; 83036; 83605; 83721; 83735; 83880; 84443; 84484; 84585; 84703; 85025; 87040; 87086; 87186; 93005; 93010; 93017; 93306-TC; 93880-TC; 99285-25; A9502; G0378

== ENCOUNTER 2017-08-18 13:23 | Emergency (ER) | payer BC ==
[2017-08-18 13:28] VITALS: TEMP 98.3; BMI 31.3
--- NOTE | 2017-08-18 16:14 | PDOC ---
History of Present Illness - General Chief Complaint: Syncope/Near Syncope Stated Complaint: NEAR SYNCOPE, ALTERED MENTAL STATUS Time Seen by Provider: 08/18/17 16:14 - History of Present Illness Initial Comments: 52 year old female with PMH of hypertension, morbid obesity, and Bipolar Disorder who presents to the emergency department with episode of weakness and possible syncope. 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 She then called out for help and slowly fell backward onto her buttox eventually laying across the floor. Denies any trauma or pain to her back or head. She recalls every bit of the event was conversational with the friend who came right away to help her. She denies any visual symptoms, memory deficit, post ictal period, shaking of any sort, tongue trauma, or focal neuro deficit before/ after the event. She was seen three months prior for palpitations and 210's and 200's SBP with some dizziness. Stress and Echo were WNL at that time. She actually was going to see Dr. Mckinnon (her PCP) tomorrow but this episode today prompted her to come in today. Denies any chills, fevers, nausea, vomiting, diarrhea, cough, SOB, chest pain, sick contacts, or other sick symptoms. She is on a diet but hasn't felt lethargic since beginning it one month prior. 08/18/17 16:21 Timing/Duration: unsure Past History - Past Medical History Allergies/Adverse Reactions: Allergies Allergy/AdvReac Type Severity Reaction Status Date / Time No Known Allergies Allergy Verified 05/05/17 13:32 Home Medications: Ambulatory Orders Divalproex [Depakote -] 500 mg PO DAILY 02/02/14 Venlafaxine HCl ER [Effexor Xr -] 150 mg PO BID 02/02/14 Aspirin Coated [Ecotrin -] 81 mg PO DAILY #30 tab 05/07/17 Atorvastatin Ca [Lipitor] 10 mg PO HS #30 tablet 05/07/17 Benztropine Mesylate [Cogentin -] 1 mg PO BID #30 tablet 05/07/17 Olanzapine [ZyPREXA -] 10 mg PO HS tablet 05/07/17 Anemia: No Asthma: No Cancer: No Cardiac Disorders: No CVA: No COPD: No CHF: No Dementia: No Diabetes: No GI Disorders: No Disorders: No HTN: Yes Hypercholesterolemia: No Liver Disease: No Psychiatric Problems: Yes (depression,anxiety) Seizures: No Thyroid Disease: No - Surgical History Abdominal Surgery: No Appendectomy: No Cardiac Surgery: No Cholecystectomy: No Lung Surgery: No Neurologic Surgery: No Orthopedic Surgery: Yes (ARTHROSCOPY RT KNEE) - Immunization History Immunization Up to Date: Yes - Suicide/Smoking/Psychosocial Hx Smoking Status: No Smoking History: Never smoked Number of Cigarettes Smoked Daily: 0 Information on smoking cessation initiated: No Hx Alcohol Use: No Drug/Substance Use Hx: No Substance Use Type: None Hx Substance Use Treatment: No Review of Systems - Review of Systems Constitutional: No: Chills, Diaphoresis, Fever HEENTM: No: Blurred Vision Respiratory: No: Cough, Orthopnea, Shortness of Breath, Wheezing, Productive cough Cardiac (ROS): Yes: Lightheadedness. No: Chest Pain, Edema, Palpitations, Syncope, Chest Tightness ABD/GI: No: Constipated, Diarrhea, Nausea, Vomiting : No: Burning, Dysuria, Frequency Musculoskeletal: Yes: Muscle Weakness. No: Joint Stiffness Integumentary: No: Bruising, Dryness Neurological: No: Headache *Physical Exam - Vital Signs Last Vital Signs Temp Pulse Resp BP Pulse Ox 98.3 F 95 H 19 148/92 94 L 08/18/17 13:26 08/18/17 13:26 08/18/17 13:26 08/18/17 13:26 08/18/17 13:26 - Physical Exam General Appearance: Yes: Nourished, Appropriately Dressed. No: Apparent Distress HEENT: positive: EOMI, TRACIE, Normal ENT Inspection, Normal Voice Neck: positive: Trachea midline, Normal Thyroid, Supple. negative: Tender, Rigid Respiratory/Chest: positive: Lungs Clear, Normal Breath Sounds. negative: Chest Tender, Respiratory Distress, Accessory Muscle Use Cardiovascular: positive: Regular Rhythm, Tachycardia ED Treatment Course - LABORATORY CBC & Chemistry Diagram: 08/18/17 17:25 08/18/17 17:25 Medical Decision Making - Medical Decision Making 52 year old female with PMH of hypertension, morbid obesity, and Bipolar Disorder who presents to the emergency department with episode of weakness while cleaning a table at work earlier today. This is most likely a stress response and not a true syncopal episode. This is not likely a cardiac syncopal event because her EKG does not demonstrate any concerning pathological aberrancy , she had a stress and echo 2 months prior that were WNL, and she does not describe any cardiac syncopal symptoms (chest pain/ pressure/ palpitations). This is also likely not a true neurological structural syncope because she does not describe headache, focal neuro deficit, actual mechanical gait abnormality, visual symptoms, loss of consciousness, seizure like symptoms, post ictal state , or loss of memory before/after/during the event. Furthermore, her electrolytes were WNL, neuro exam completely normal (including majority of reflexes and cerebellar signs), and she was able to ambulate, converse, and generally was very well appearing about mid-way through her ED visit after being removed from the the stressful thoughts that she was experiencing at work. We spoke about the many stresses in her life and she admitted that she was thinking about some very stressful personal issues directly prior to the event and felt a sensation of "being overwhelmed". After workup, and conversation with the patient, she agreed that she was satisfied with her treatment/workup/ diagnosis and would follow up with her PCP tomorrow. *DC/Admit/Observation/Transfer Diagnosis at time of Disposition: Lightheadedness - Discharge Dispostion Disposition: HOME Condition at time of disposition: Improved Admit: No - Referrals Referrals: Liliana Mckinnon MD [Primary Care Provider] - - Patient Instructions Additional Instructions: Your ekg and heart enzymes did not show any concerning changes to your crow structure or activity. Your labs were also normal. Likely this was related to your anxiety but you absolutely need to follow up with Dr. Rudd this week. Please return directly to the ED if you have similar or worse symptoms. Please take it easy at work until you see Dr. Rudd. - Post Discharge Activity Forms/Work/School Notes: Back to Work
[2017-08-18 17:45] LABS: BASO % 0.6 % (0-2.0); EOS % 2.1 % (0-4.5); HEMATOCRIT 38.1 % (32.4-45.2); HEMOGLOBIN 12.7 GM/dL (10.7-15.3); LYMPH % 39.2 % (8-40); MCHC 33.2 g/dl (32.0-36.0); MEAN CELL VOLUME 87.3 fl (80-96); MEAN PLT VOLUME 8.2 fl (7.5-11.1); MONO % 7.6 % (3.8-10.2); NEUT % 50.5 % (42.8-82.8); PLATELET COUNT 294 K/MM3 (134-434); RBC 4.37 M/mm3 (3.60-5.2); WHITE BLOOD COUNT 7.4 K/mm3 (4.0-10.0)
[2017-08-18 18:47] LABS: ANION GAP 8 (8-16); BLOOD UREA NITROGEN 20 mg/dL (7-18); CALCIUM 9.3 mg/dL (8.5-10.1); CHLORIDE 100 mmol/L (98-107); CO2 31 mmol/L (21-32); GLUCOSE,RANDOM 76 mg/dL (74-106); POTASSIUM 3.9 mmol/L (3.5-5.1); SODIUM 139 mmol/L (136-145)
[2017-08-18 18:52] LABS: ALK PHOS 70 U/L (45-117); BILIRUBIN,TOTAL 0.3 mg/dL (0.2-1.0); CREATININE 0.6 mg/dL (0.55-1.02); SGOT/AST 12 U/L (15-37); SGPT/ALT 22 U/L (12-78); TOT PROT 7.5 g/dl (6.4-8.2)
[2017-08-18 19:36] VITALS: BP 143/87; PULSE 81
--- NOTE | 2017-08-19 07:59 | EKG ---
Test Reason : Blood Pressure : / mmHG Vent. Rate : 080 BPM Atrial Rate : 080 BPM P-R Int : 148 ms QRS Dur : 076 ms QT Int : 394 ms P-R-T Axes : 061 020 039 degrees QTc Int : 454 ms NORMAL SINUS RHYTHM SEPTAL INFARCT , AGE UNDETERMINED ABNORMAL ECG WHEN COMPARED WITH ECG OF 05-MAY-2017 13:23, SEPTAL INFARCT IS NOW PRESENT Confirmed by JOSE JUAN TOMPKINS, KADIE ([id number]) on 08/19/2017 7:58:46 AM Referred By: Confirmed By:KADIE MANZANO MD
== END 2017-08-18 19:36 | disposition home or self-care (01) ==
LOC: JER 13:23
DX: R42 Dizziness and giddiness (principal); I10 Essential (primary) hypertension; F31.9 Bipolar disorder, unspecified; E66.01 Morbid (severe) obesity due to excess calories; Z68.31 Body mass index [BMI] 31.0-31.9, adult
CPT/HCPCS: 36415; 80053; 82550; 84484; 85025; 93005; 93010; 99285-25

== ENCOUNTER 2018-03-20 16:23 | Observation (INO) | payer BC ==
--- NOTE | 2018-03-20 17:56 | PDOC ---
History of Present Illness - History of Present Illness Initial Comments: 03/20/18 18:27 The patient is a 52 year old female with a past medical history of hypertension and bipolar disorder who presents to the emergency department for evaluation of facial grimacing and tremors in arm. The patient reports intermittent episodes of grimacing around the mouth and tremors of the arms 2 days ago. She notes the shaking symptoms are exacerbated when she lays down. Patient reports associated symptoms of chest pain, shortness of breath and palpitations described as "racing heart beat". She states she was taking Depakote and Abilify and after visiting her PCP 2 days ago who switched her from Abilify to Benztropine. Patient states she was sent to the emergency department for further evaluation by her PCP (Dr. Mckinnon). Patient plans to follow up with her psychiatrist Dr. Jiang at [facility]. The patient denies seizure like activity, abdominal pain, headache, dizziness, nausea, vomiting, fevers, chills, and any bowel/urinary symptoms. Allergies: No known allergies. Social History: No reported alcohol, cigarette, or drug use. Surgical History: Bilateral knee surgeries. PCP: Dr. Mckinnon <Shana Bejarano - Last Filed: 03/20/18 18:49> - General History Source: Patient Exam Limitations: No Limitations <Trisha Rosado - Last Filed: 03/20/18 18:51> - General Chief Complaint: Psychiatric Stated Complaint: EVALUATION Past History <Shana Bejarano - Last Filed: 03/20/18 18:49> - Past Medical History Anemia: No Asthma: No Cancer: No Cardiac Disorders: No CVA: No COPD: No CHF: No Dementia: No Diabetes: No GI Disorders: No Disorders: No HTN: Yes Hypercholesterolemia: No Liver Disease: No Psychiatric Problems: Yes (depression,anxiety, bipolar) Seizures: No Thyroid Disease: No - Surgical History Abdominal Surgery: No Appendectomy: No Cardiac Surgery: No Cholecystectomy: No Lung Surgery: No Neurologic Surgery: No Orthopedic Surgery: Yes (ARTHROSCOPY RT KNEE) - Immunization History Immunization Up to Date: Yes - Suicide/Smoking/Psychosocial Hx Smoking Status: No Smoking History: Never smoked Number of Cigarettes Smoked Daily: 0 Hx Alcohol Use: No Drug/Substance Use Hx: No Substance Use Type: None Hx Substance Use Treatment: No <Trisha Rosado - Last Filed: 03/20/18 18:51> - Past Medical History Allergies/Adverse Reactions: Allergies Allergy/AdvReac Type Severity Reaction Status Date / Time No Known Allergies Allergy Verified 03/20/18 16:24 Home Medications: Ambulatory Orders Divalproex [Depakote -] 500 mg PO DAILY 02/02/14 Venlafaxine HCl ER [Effexor Xr -] 75 mg PO BID 02/02/14 Aripiprazole 5 mg PO DAILY 03/20/18 Benztropine Mesylate [Cogentin -] 0.5 mg PO BID 03/20/18 Metoprolol Succinate 100 mg PO DAILY 03/20/18 traZODone HCL [Trazodone HCl] 50 mg PO DAILY 03/20/18 Review of Systems - Review of Systems Able to Perform ROS?: Yes Comments:: GENERAL/CONSTITUTIONAL: No fever or chills. No weakness. HEAD, EYES, EARS, NOSE AND THROAT: No change in vision. No ear pain or discharge. No sore throat. CARDIOVASCULAR: (+)Palpitations. (+)Shortness of breath. No chest pain. RESPIRATORY: No cough, wheezing, or hemoptysis. GASTROINTESTINAL: No nausea, vomiting, diarrhea or constipation. GENITOURINARY: No dysuria, frequency, or change in urination. MUSCULOSKELETAL: No joint or muscle swelling or pain. No neck or back pain. SKIN: No rash NEUROLOGIC: (+)Shaking of mouth. (+)Shaking of arms. No headache, vertigo, loss of consciousness, or change in strength/sensation. ENDOCRINE: No increased thirst. No abnormal weight change. HEMATOLOGIC/LYMPHATIC: No anemia, easy bleeding, or history of blood clots. ALLERGIC/IMMUNOLOGIC: No hives or skin allergy. <Shana Bejarano - Last Filed: 03/20/18 18:49> *Physical Exam - Vital Signs Last Vital Signs Temp Pulse Resp BP Pulse Ox 98.4 F 67 16 177/97 100 03/20/18 16:25 03/20/18 16:25 03/20/18 16:25 03/20/18 16:25 03/20/18 16:25 - Physical Exam Comments: GENERAL: Awake, alert, and fully oriented, in no acute distress HEAD: No signs of trauma EYES: PERRLA, EOMI, sclera anicteric, conjunctiva clear ENT: Auricles normal inspection, hearing grossly normal, nares patent. Moist mucosa NECK: Normal ROM, supple, no lymphadenopathy, JVD, or masses LUNGS: Breath sounds equal, clear to auscultation bilaterally. No wheezes, and no crackles HEART: Regular rate and rhythm, normal S1 and S2, no murmurs, rubs or gallops ABDOMEN: Soft, nontender, normoactive bowel sounds. No guarding, no rebound. No masses EXTREMITIES: Normal range of motion, no edema. No erythema or tenderness. DP/PT pulses 2+ and symmetric. Warm and well perfused. NEUROLOGICAL: (+)Grimacing, tardive dyskinesia movements of the mouth. Cranial nerves intact. Strength is 5/5. Moves all extremities. Normal speech, normal gait SKIN: Warm, Dry, normal turgor, no rashes or lesions noted. Psychological: Speech is clear. No hallucinations. <Shana Bejarano - Last Filed: 03/20/18 18:49> - Vital Signs Last Vital Signs Temp Pulse Resp BP Pulse Ox 98.4 F 67 16 177/97 100 03/20/18 16:25 03/20/18 16:25 03/20/18 16:25 03/20/18 16:25 03/20/18 16:25 <Trisha Rosado - Last Filed: 03/20/18 18:51> ED Treatment Course - LABORATORY CBC & Chemistry Diagram: 03/20/18 17:47 03/20/18 17:47 - ADDITIONAL ORDERS Additional order review: 03/20/18 17:47 RBC 4.68 MCV 83.4 MCHC 34.7 RDW 13.6 MPV 8.2 Neutrophils % 52.8 Lymphocytes % 36.2 Monocytes % 8.5 Eosinophils % 1.7 Basophils % 0.8 <Shana Bejarano - Last Filed: 03/20/18 18:49> - LABORATORY CBC & Chemistry Diagram: 03/20/18 17:47 03/20/18 17:47 <Trisha Rosado - Last Filed: 03/20/18 18:51> Medical Decision Making - Medical Decision Making Case discussed with Dr. Mckinnon at 17:21. <Shana Bejarano - Last Filed: 03/20/18 18:49> - Medical Decision Making 03/20/18 17:43 52 yo F wit h/bipolar and HTN here with c/o facial grimacing, twitching movement and tremors in her arms. she has been taking abilify since october 2017 has been on depakote for years. also started valsartan and metroprol one month ago. was started on benztropine [address] delgado for grimacing. pt d /w covering psychiatrist dr. jiang at [facility]. denies f /c no sob. no seizure like activity. called [facility] told to come to ED. pt denies si hi or ah. decreased sleep. on exam awake alert lungs clear bilaterally heart rrr no mrg. abd soft nt . psych pt calm cooperative. no si hi or ah. does have grimacing mouth movements. pupils 3 to 2. normally reactive. flat affect. speech quiet, not pressure. plan labs r/o other electrolyte abnormality, ck r/o rhabdo. d/w dr delgado offered observation. 03/20/18 18:10 d/w covering physician at [place]. recommend stopping the ability due to eps. pt has followup scheduled for thursday in 2 days. 03/20/18 18:50 pt also c/o chest pain and palpitations, racing heart beat. elevated BP in ED. will be observed on tele. under dr. wilkins. will have dr. miller see her in am. <Trisha Rosado - Last Filed: 03/20/18 18:51> *DC/Admit/Observation/Transfer - Attestations Scribe Attestion: Documentation prepared by Shana Bejarano, acting as medical equipment sales for Trisha Rosado MD. <Shana Bejarano - Last Filed: 03/20/18 18:49> - Discharge Dispostion Decision to Admit order: Yes <Trisha Rosado - Last Filed: 03/20/18 18:51> Diagnosis at time of Disposition: Medication side effect, Chest pain - Referrals Referrals: Liliana Mckinnon MD [Primary Care Provider] - - Patient Instructions - Post Discharge Activity
[2018-03-20 18:00] LABS: BASO % 0.8 % (0-2.0); EOS % 1.7 % (0-4.5); HEMATOCRIT 39.1 % (32.4-45.2); HEMOGLOBIN 13.5 GM/dL (10.7-15.3); LYMPH % 36.2 % (8-40); MCHC 34.7 g/dl (32.0-36.0); MEAN CELL VOLUME 83.4 fl (80-96); MEAN PLT VOLUME 8.2 fl (7.5-11.1); MONO % 8.5 % (3.8-10.2); NEUT % 52.8 % (42.8-82.8); PLATELET COUNT 304 K/MM3 (134-434); RBC 4.68 M/mm3 (3.60-5.2); RDW 13.6 % (11.6-15.6); WHITE BLOOD COUNT 6.1 K/mm3 (4.0-10.0)
[2018-03-20] MEDS ORDERED: LORazepam 2 MG/ML SDV VIAL ONE (18:19)
[2018-03-20 18:27] LABS: ALBUMIN 3.8 g/dl (3.4-5.0); ANION GAP 9 MMOL/L (8-16); BILIRUBIN,TOTAL 0.4 mg/dL (0.2-1.0); BLOOD UREA NITROGEN 13 mg/dL (7-18); CALCIUM 9.5 mg/dL (8.5-10.1); CHLORIDE 98 mmol/L (98-107); CO2 31 mmol/L (21-32); CREATININE 0.5 mg/dL (0.55-1.02); GLUCOSE,RANDOM 83 mg/dL (74-106); POTASSIUM 3.8 mmol/L (3.5-5.1); SGOT/AST 12 U/L (15-37); SGPT/ALT 18 U/L (12-78); SODIUM 138 mmol/L (136-145); TOT PROT 7.1 g/dl (6.4-8.2)
[2018-03-20 18:28] LABS: ALK PHOS 68 U/L (45-117)
[2018-03-20 18:52] LABS: COCAINE, UR NEGATIVE ng/ml (CUTOFF=300); METHADONE, UR NEGATIVE ng/ml (CUTOFF=300); OPIATES, URI NEGATIVE ng/ml (CUTOFF=300); PHENCYCLIDINE,URINE NEGATIVE ng/ml (CUTOFF=25); URINE AMPHETAMINES NEGATIVE ng/ml (CUTOFF=500); URINE BARBITURATES NEGATIVE ng/ml (CUTOFF=200); URINE BENZODIAZEPINES NEGATIVE ng/ml (CUTOFF=200)
--- NOTE | 2018-03-20 19:52 | HP ---
CHIEF COMPLAINT: PCP: Dr. Mckinnon HISTORY OF PRESENT ILLNESS: 52 yr old woman with bipolar d/o, HTN presented to ED due to restlessness and chest pressure. She has been unable to sleep for the past two days(trouble staying asleep for more than 2 hours). This afternoon she was trying to rest in bed without relief the felt she was having chest pain and shortness of breath. The chest pain was below the lower part the sternum, nonradiating, nonpositional lasting a few seconds associated with trouble breathing. she has also been having an increase in abnormal facial movements. She stopped taking her Abilify few days ago when her restless started. PCP had started her on cogentin for tremors that she does not feel like worked well. Was started on abilify in October 2017. denies palpitations, fevers, cough. her daughter in [place] suffered a miscarriage 1 month ago, pt has been worried and anxious about the miscarriage, her daughter is not close with her, pt wants to provide support but feels that she is unable to do so. ER course was notable for: (1) trop X2 negative, EKG without acute ischemic changes (2) (3) Recent Travel: went to [facility] for 1 day last month PAST MEDICAL HISTORY: bipolar disorder, HTN PAST SURGICAL HISTORY: b/l knee surgeries Social History: Smoking: denies Alcohol:denies Drugs: denies Family History: [place] Allergies No Known Allergies Allergy (Verified 03/20/18 16:24) HOME MEDICATIONS: Home Medications Medication Instructions Recorded Divalproex [Depakote -] 500 mg PO DAILY 02/02/14 Venlafaxine HCl ER [Effexor Xr -] 75 mg PO BID 02/02/14 Aripiprazole 5 mg PO DAILY 03/20/18 Benztropine Mesylate [Cogentin -] 0.5 mg PO BID 03/20/18 Metoprolol Succinate 100 mg PO DAILY 03/20/18 traZODone HCL [Trazodone HCl] 50 mg PO DAILY 03/20/18 REVIEW OF SYSTEMS CONSTITUTIONAL: Absent: fever, chills, diaphoresis, generalized weakness, malaise, loss of appetite, weight change HEENT: Present: feels that it is getting harder to read fine print Absent: rhinorrhea, nasal congestion, throat pain, throat swelling, difficulty swallowing, mouth swelling, ear pain, eye pain, visual changes CARDIOVASCULAR: Present:chest pain, Absent: syncope, palpitations, irregular heart rate, lightheadedness, peripheral edema RESPIRATORY: Present:shortness of breath, Absent: cough, dyspnea with exertion, orthopnea, wheezing, stridor, hemoptysis GASTROINTESTINAL: Absent: abdominal pain, abdominal distension, nausea, vomiting, diarrhea, constipation, melena, hematochezia GENITOURINARY: Absent: dysuria, frequency, urgency, hesitancy, hematuria, MUSCULOSKELETAL: Absent: myalgia, arthralgia, joint swelling, back pain, neck pain SKIN: Absent: rash, itching, pallor HEMATOLOGIC/IMMUNOLOGIC: Absent: easy bleeding, easy bruising, lymphadenopathy, frequent infections ENDOCRINE: Absent: unexplained weight gain, unexplained weight loss, heat intolerance, cold intolerance NEUROLOGIC: Present: headache, Absent: focal weakness or paresthesias, dizziness, unsteady gait, seizure, mental status changes, PSYCHIATRIC: Absent: anxiety, depression, suicidal or homicidal ideation, hallucinations. PHYSICAL EXAMINATION Vital Signs - 24 hr 03/20/ 16:25 Temperature 98.4 F Pulse Rate 67 Respiratory 16 Rate Blood Pressure 177/97 O2 Sat by Pulse 100 Oximetry (%) GENERAL: Awake, alert, and fully oriented, in no acute distress. HEAD: Normal with no signs of trauma. uncontrolled intermittent movement of lower jaw and lip licking. EYES: Pupils equal, round and reactive to light, extraocular movements intact, sclera anicteric, conjunctiva clear. No lid lag. EARS, NOSE, THROAT: oropharynx clear without exudates. Moist mucous membranes. NECK: Normal range of motion, supple without lymphadenopathy, JVD, or masses. LUNGS: Breath sounds equal, clear to auscultation bilaterally. No wheezes, and no crackles. No accessory muscle use. HEART: Regular rate and rhythm, normal S1 and S2 without murmur, rub or gallop. ABDOMEN: Soft, nontender, not distended, normoactive bowel sounds, no guarding, no rebound, no masses. No hepatomegaly or splenomegaly. MUSCULOSKELETAL: Normal range of motion at all joints. No bony deformities or tenderness. No CVA tenderness. UPPER EXTREMITIES: 2+ radial pulses, warm, well-perfused. No cyanosis. No clubbing. No peripheral edema. LOWER EXTREMITIES: 2+ dp pulses, warm, well-perfused. No calf tenderness. No peripheral edema. NEUROLOGICAL: Cranial nerves II-XII intact. Normal speech. Normal gait.5/5 strength with extension and flexion in shoulder/elbow/wrist/hip/knee/ankle PSYCHIATRIC: Cooperative. Good eye contact. Appropriate mood and affect. denies SI/HI, hallucination SKIN: Warm, dry, normal turgor, no rashes or lesions noted, normal capillary refill. Laboratory Results - last 24 hr 03/20/18 03/20/18 03/20/18 17:47 17:47 17:47 WBC 6.1 RBC 4.68 Hgb 13.5 Hct 39.1 MCV 83.4 MCH 29.0 MCHC 34.7 RDW 13.6 Plt Count 304 MPV 8.2 Absolute Neuts (auto) 3.2 Neutrophils % 52.8 Lymphocytes % 36.2 Monocytes % 8.5 Eosinophils % 1.7 Basophils % 0.8 Nucleated RBC % 0 Sodium 138 Potassium 3.8 Chloride 98 Carbon Dioxide 31 Anion Gap 9 BUN 13 Creatinine 0.5 L Creat Clearance w eGFR > 60 Random Glucose 83 Calcium 9.5 Total Bilirubin 0.4 AST 12 L ALT 18 Alkaline Phosphatase 68 Creatine Kinase Total Protein 7.1 Albumin 3.8 Opiates Screen Methadone Screen Barbiturate Screen Valproic Acid 62.7 Phencyclidine Screen Ur Amphetamines Screen MDMA (Ecstasy) Screen Benzodiazepines Screen Cocaine Screen U Marijuana (THC) Screen 03/20/18 03/20/18 17:47 18:25 WBC RBC Hgb Hct MCV MCH MCHC RDW Plt Count MPV Absolute Neuts (auto) Neutrophils % Lymphocytes % Monocytes % Eosinophils % Basophils % Nucleated RBC % Sodium Potassium Chloride Carbon Dioxide Anion Gap BUN Creatinine Creat Clearance w eGFR Random Glucose Calcium Total Bilirubin AST ALT Alkaline Phosphatase Creatine Kinase 86 Total Protein Albumin Opiates Screen Negative Methadone Screen Negative Barbiturate Screen Negative Valproic Acid Phencyclidine Screen Negative Ur Amphetamines Screen Negative MDMA (Ecstasy) Screen Negative Benzodiazepines Screen Negative Cocaine Screen Negative U Marijuana (THC) Screen Negative ASSESSMENT/PLAN: 52 yr woman with hx of bipolar disorder and HTN placed on observation to r.o ACS and monitor for tardive dyskinesia. - medication will need to reconciled, added per patient's recollection of what she takes #r.o ACS due to c/o chest pain - trop negative, repeat ekg in the AM, telemonitoring - last echo may 2017 #Bipolar disorder - hold alineentin and xochitl due to extrapyramidal symptoms - ativan prn - trazadone 50mg po HS for sleep, continue Effexor 225(75mg - 3 tablets) in the AM, continue depakoate 500mg daily - Consult Dr. Alvarado, psychiatry to evaluate pt for EPS #HTN - continue metoprolol succ 100mg po daily #Diet: sodium controlled diet #DVT: lovenox sq #Dispo: pending psychiatry evaluation Visit type - Emergency Visit Emergency Visit: Yes ED Registration Date: 03/20/18 Care time: The patient presented to the Emergency Department on the above date and was hospitalized for further evaluation of their emergent condition. - New Patient This patient is new to me today: Yes Date on this admission: 03/20/18 - Critical Care Critical Care patient: No Hospitalist Screening - Colonoscopy Questionnaire Colonoscopy Questionnaire: Colonoscopy Questionnaire - Patient: 50 - 75 years old and never had a screening colonoscopy: Unknown History of colon or rectal polyps, or CA: Unknown History of IBD, Crohn's disease or UC: Unknown History of abdominal radiation therapy as a child: Unknown - Relative: 1 with colon or rectal CA, or polyps at age 60 or younger: Unknown Colon or rectal CA diagnosed at age 45 or younger: Unknown Multiple relatives with colon or rectal CA: Unknown - Outcome: Screening Result: Negative Screen
[2018-03-20] MEDS ORDERED: traZODone HCL 50 MG TABLET (FP) PO SCH (22:00)
--- NOTE | 2018-03-20 23:37 | PN ---
Teaching Attending Note Name of Resident: Dann Wagoner ATTENDING PHYSICIAN STATEMENT I saw and evaluated the patient. Chart, data reviewed. I reviewed the resident's note and discussed the case with the resident. I agree with the resident's findings and plan as documented. SUBJECTIVE: 52 yr old woman with bipolar d/o, HTN presented to hospital with restlessness for 2 days including development of abnormal facial movements. Also, PCP recently started on congentin for tremors and did not feel that it worked well. Patient was started on Abilify 10/2017 for Bipolar d/o, however stopped taking it recently after these symptoms started. Pt also c/o chest pressure that started last night but is now improved. OBJECTIVE: Last Vital Signs Temp Pulse Resp BP Pulse Ox 98.1 F 68 20 111/65 98 03/21/18 02:05 03/21/18 02:05 03/21/18 03:51 03/21/18 02:05 03/21/18 03:51 general- nad, aaox3 heent- no scleral pallor neck -supple cv -s1+s2+ rrr chest- cta b/l abdomen- soft, nt , bs+ ext - no pedal edema Abnormal Lab Results 03/20/18 17:47 Creatinine 0.5 L AST 12 L ASSESSMENT AND PLAN: #52yo woman with bipolar disorder who developed EPS symptoms after starting Abilify. Likely secondary to Abilify. Also chronically on Effexor and Depakote. -observation/tele -d/c abilify -c/w effexor and depakote for now -psych consult for medication adjustment #chest pain- resolved, trop neg x2, EKG with no ischemic changes -observe, do not suspect acs heparin sc for dvt ppx
[2018-03-21 06:56] VITALS: BMI 29.6
[2018-03-21] MEDS ORDERED: VENLAFAXINE HCL 75 MG E.R. CAPSULES (FP) PO SCH (08:00)
[2018-03-21] MEDS ORDERED: ENOXAPARIN NA (PORCINE) 40 MG/0.4 ML DISP.SYRIN SQ SCH (10:00)
[2018-03-21] MEDS ORDERED: DIVALPROEX SODIUM 500 MG TABLET E.C. PO SCH (10:00)
--- NOTE | 2018-03-21 11:44 | DS ---
Physical Examination Vital Signs: Vital Signs Temperature 98.2 F 03/21/18 06:00 Pulse Rate 63 03/21/18 06:00 Respiratory Rate 20 03/21/18 06:00 Blood Pressure 150/83 03/21/18 06:00 O2 Sat by Pulse Oximetry (%) 98 03/21/18 03:51 Constitutional: Yes: No Distress Eyes: Yes: WNL HENT: Yes: WNL Neck: Yes: WNL Cardiovascular: Yes: WNL Respiratory: Yes: WNL Gastrointestinal: Yes: WNL Renal/: Yes: WNL Musculoskeletal: Yes: WNL Extremities: Yes: WNL Edema: No Peripheral Pulses WNL: Yes Integumentary: Yes: WNL Wound/Incision: Yes: Clean/Dry Neurological: Yes: Tremors, Other (TARDIVE DYSKINESIS) ...Motor Strength: WNL Psychiatric: Yes: WNL Labs: CBC, BMP 03/20/18 17:47 03/20/18 17:47 Discharge Summary Reason For Visit: TACHYCARDIA/CHEST PAIN Current Active Problems Chest pain (Acute) Medication side effect (Acute) TARDIVE DYSKINESIA Procedures: Principal: LABS Hospital Course: ADMITTED FOR PALPITATIONS/CHEST PAIN ALL NEGATIVE FOR CARDIAC WORKUP, PATIENT HAS TARDIVE DYSKINESIA, AWAIT PSYCHIATRY EVAL CAN DC HOME . SHE HAS AN APPOINTMENT WITH HER PSYCHIATRIST TOMORROW MORNING AT 930AM OUTPATIENT Condition: Stable - Instructions Diet, Activity, Other Instructions: LOW SODIUM PSYCHIATRY EVAL TOMORROW 930AM Referrals: Liliana Mckinnon MD [Staff Physician] - Disposition: HOME - Home Medications Comprehensive Discharge Medication List: Ambulatory Orders Divalproex [Depakote -] 500 mg PO DAILY 02/02/14 Venlafaxine HCl ER [Effexor Xr -] 75 mg PO BID 02/02/14 Aripiprazole 5 mg PO DAILY 03/20/18 Benztropine Mesylate [Cogentin -] 0.5 mg PO BID 03/20/18 Metoprolol Succinate 100 mg PO DAILY 03/20/18 traZODone HCL [Trazodone HCl] 50 mg PO DAILY 03/20/18
[2018-03-21] MEDS ORDERED: ACETAMINOPHEN 325 MG TABLET (FP) PO ONE (13:30)
[2018-03-21 13:59] VITALS: BP 135/79; PULSE 70; TEMP 98.7
--- NOTE | 2018-03-21 21:58 | EKG ---
Test Reason : Blood Pressure : / mmHG Vent. Rate : 064 BPM Atrial Rate : 064 BPM P-R Int : 154 ms QRS Dur : 086 ms QT Int : 416 ms P-R-T Axes : 052 033 043 degrees QTc Int : 429 ms NORMAL SINUS RHYTHM POSSIBLE LEFT ATRIAL ENLARGEMENT BORDERLINE ECG WHEN COMPARED WITH ECG OF 18-AUG-2017 17:43, NO SIGNIFICANT CHANGE WAS FOUND Confirmed by JOSE RAMIREZ MD ([id number]) on 03/21/2018 9:58:16 PM Referred By: Confirmed By:JOSE RAMIREZ MD
== END 2018-03-21 17:26 | disposition home or self-care (01) ==
LOC: JER 16:23 → UNDOADMOB 18:51 → INTOOBSV 18:51 → JERBED 18:51 → J4W 21:38 → JERBED 21:38 → J4W 21:38
PROVIDERS: ADMIT Family Medicine; ATTEND Family Medicine
PROC: 3E033GC Introduction of Other Therapeutic Substance into Peripheral Vein, Percutaneous Approach (ICD-10-PCS; principal; 2018-03-20)
PROC: 3E013GC Introduction of Other Therapeutic Substance into Subcutaneous Tissue, Percutaneous Approach (ICD-10-PCS; 2018-03-20)
DX: R07.9 Chest pain, unspecified (principal); T50.995A Adverse effect of other drugs, medicaments and biological substances, initial encounter; Y92.9 Unspecified place or not applicable; G24.01 Drug induced subacute dyskinesia; I10 Essential (primary) hypertension; F31.9 Bipolar disorder, unspecified
CPT/HCPCS: 36415; 80053; 80164; 80307; 82550; 84443; 84484; 85025; 93005; 93010; 99285-25; G0378

== ENCOUNTER 2020-02-04 16:42 | Emergency (ER) | payer BC ==
--- NOTE | 2020-02-04 16:48 | PDOC ---
Rapid Medical Evaluation Time Seen by Provider: 02/04/20 16:44 Medical Evaluation: Allergies Allergy/AdvReac Type Severity Reaction Status Date / Time No Known Allergies Allergy Verified 02/04/20 16:44 02/04/20 16:45 CC: Feels nervous and having palpitations with insomnia since last night, on lithium and depakote but dose decreased yesterday. Exam: appears apprehensive Plan: lithium and depakote level, ekg Discharge Disposition - Diagnosis Headache - Referrals - Patient Instructions - Post Discharge Activity
[2020-02-04 16:49] VITALS: BP 149/69; PULSE 80; TEMP 97.7; BMI 30.4
--- NOTE | 2020-02-04 17:52 | PDOC ---
Attending Attestation - Resident Resident Name: Trever Cuevas - HPI HPI: 02/04/20 18:39 Pt presents to the ED because she was told by her psychiatrist that her lithium level was slightly high. She was told to follow up with her psychiatrist on Thursday, but presents today because she "wanted to make sure everything was ok". Denies any new physical or psychiatric complaints. - Physicial Exam PE: 02/04/20 19:04 gen: alert, NAD. Psych: calm and cooperative. Denies SI or HI. Reasoning is goal directed. well groomed. - Medical Decision Making 02/05/20 07:36 Patient presents to the ED for follow up after informed by her psychiatrist that her lithium level was "slighly high". Has follow up with psychiatrist on Thursday. Denies new complaints. Will discharge home. Discharge - Discharge Information Problems reviewed: Yes Clinical Impression/Diagnosis: Anxiety about health Condition: Stable Disposition: HOME - Follow up/Referral Referrals: Liliana Mckinnon MD [Primary Care Provider] - - Patient Discharge Instructions Additional Instructions: You were seen in the ED today for your anxiety about your drug levels and insomnia. There was no concern for an acute medical problem. Please call you psychiatrist to discuss your drug regimen and your symptoms. Please call your doctor or return to the ED if you experience chest pain or any other sypmptom. - Post Discharge Activity
--- NOTE | 2020-02-04 18:16 | PDOC ---
History of Present Illness - General Chief Complaint: Psychiatric Stated Complaint: HEADACHE Time Seen by Provider: 02/04/20 16:44 History Source: Patient Exam Limitations: No Limitations - History of Present Illness Initial Comments: 02/04/20 18:15 54yo F with PMH bipolar disorder, HTN, asthma, who presents complaining of worsening anxiety/agitation/insomnia. She is concerned because of a recent discussion about the level of psychiatric drugs in her system. States awoke multiple times from anxiety. Denies palpitations, chest pain. Complains of headache and neck pain, unchanged from her baseline. Denies SI/HI. PMHX: as in HPI PSHX: knee replacement Meds: lithium, depakote, effexor, trazadone, metoprolol, amlodipine, lisinopril Allergies: none Tob: denies Etoh: denies Rec drugs: denies PCP: Lacy Pool Nurse: DAVIS GENERAL/CONSTITUTIONAL: No fever or chills. No weakness. HEAD, EYES, EARS, NOSE AND THROAT: No change in vision. No ear pain or discharge. No sore throat. CARDIOVASCULAR: No chest pain or shortness of breath RESPIRATORY: No cough, wheezing, or hemoptysis. GASTROINTESTINAL: No nausea, vomiting, diarrhea or constipation. GENITOURINARY: No dysuria, frequency, or change in urination. MUSCULOSKELETAL: Baseline neck pain SKIN: No rash NEUROLOGIC: Baseline tension headache, vertigo, loss of consciousness, or change in strength/sensation. ENDOCRINE: No increased thirst. No abnormal weight change HEMATOLOGIC/LYMPHATIC: No anemia, easy bleeding, or history of blood clots. ALLERGIC/IMMUNOLOGIC: No hives or skin allergy. PE GENERAL: Awake, alert, and fully oriented, in no acute distress HEAD: No signs of trauma, normocephalic, atraumatic EYES: PERRLA, EOMI, sclera anicteric, conjunctiva clear ENT: Hearing grossly normal, nares patent, oropharynx clear without exudates. Moist mucosa NECK: Normal ROM, supple, no lymphadenopathy, JVD, or masses LUNGS: No distress, speaks full sentences, clear to auscultation bilaterally HEART: Regular rate and rhythm, normal S1 and S2, no murmurs, rubs or gallops, peripheral pulses normal and equal bilaterally. ABDOMEN: Soft, nontender, normoactive bowel sounds. No guarding, no rebound. No masses EXTREMITIES : Normal inspection, Normal range of motion, no edema. No clubbing or cyanosis. NEUROLOGICAL: Cranial nerves II through XII grossly intact. Normal speech, normal gait, no focal sensorimotor deficits SKIN: Warm, Dry, normal turgor, no rashes or lesions noted Assessment and Plan 54yo F with PMH bipolar disorder, HTN, asthma, who presents complaining of worsening anxiety/agitation/insomnia. No acute medical complaints -DC to f/u with psychiatrist Patient stable for discharge. Given follow up instructions and strict return precautions. Patient expressed understanding and agree to plan Past History - Medical History Allergies/Adverse Reactions: Allergies Allergy/AdvReac Type Severity Reaction Status Date / Time No Known Allergies Allergy Verified 02/04/20 16:44 Home Medications: Ambulatory Orders Divalproex [Depakote -] 500 mg PO DAILY 02/02/14 Venlafaxine HCl ER [Effexor Xr -] 75 mg PO BID 02/02/14 Aripiprazole 5 mg PO DAILY 03/20/18 Benztropine Mesylate [Cogentin -] 0.5 mg PO BID 03/20/18 Metoprolol Succinate 100 mg PO DAILY 03/20/18 traZODone HCL [Trazodone HCl] 50 mg PO DAILY 03/20/18 Anemia: No Asthma: No Cancer: No Cardiac Disorders: No CVA: No COPD: No CHF: No Dementia: No Diabetes: No GI Disorders: No Disorders: No HTN: Yes Hypercholesterolemia: No Liver Disease: No Psychiatric Problems: Yes (depression,anxiety, bipolar) Seizures: No Thyroid Disease: No - Surgical History Abdominal Surgery: No Appendectomy: No Cardiac Surgery: No Cholecystectomy: No Lung Surgery: No Neurologic Surgery: No Orthopedic Surgery: Yes (ARTHROSCOPY RT KNEE) - Immunization History Immunization Up to Date: Yes - Psycho-Social/Smoking History Smoking Status: No Smoking History: Never smoked Number of Cigarettes Smoked Daily: 0 Information on smoking cessation initiated: No - Substance Abuse Hx (Audit-C & DAST Scrn) How often the patient has a drink containing alcohol: Never Score: In Men: 4 or > Positive; In Women: 3 or > Positive: 0 Screen Result (Pos requires Nsg. Audit-10AR): Negative *Physical Exam - Vital Signs Last Vital Signs Temp Pulse Resp BP Pulse Ox 97.7 F 80 17 149/69 98 02/04/20 16:46 02/04/20 16:46 02/04/20 16:46 02/04/20 16:46 02/04/20 16:46 Discharge - Discharge Information Problems reviewed: Yes Clinical Impression/Diagnosis: Anxiety about health Condition: Stable Disposition: HOME - Admission No - Follow up/Referral Referrals: Liliana Mckinnon MD [Primary Care Provider] - - Patient Discharge Instructions Additional Instructions: You were seen in the ED today for your anxiety about your drug levels and insomnia. There was no concern for an acute medical problem. Please call you ps ychiatrist to discuss your drug regimen and your symptoms. Please call your doctor or return to the ED if you experience chest pain or any other sypmptom. - Post Discharge Activity
--- NOTE | 2020-02-05 11:27 | EKG ---
Test Reason : Blood Pressure : / mmHG Vent. Rate : 077 BPM Atrial Rate : 077 BPM P-R Int : 152 ms QRS Dur : 094 ms QT Int : 394 ms P-R-T Axes : 063 027 044 degrees QTc Int : 445 ms NORMAL SINUS RHYTHM POSSIBLE LEFT ATRIAL ENLARGEMENT SEPTAL INFARCT , AGE UNDETERMINED ABNORMAL ECG WHEN COMPARED WITH ECG OF 20-MAR-2018 18:34, NO SIGNIFICANT CHANGE WAS FOUND Confirmed by SAMY TOMPKINS, STANISLAV ([id number]) on 02/05/2020 11:27:33 AM Referred By: Confirmed By:STANISLAV PABLO MD
== END 2020-02-04 18:39 | disposition home or self-care (01) ==
LOC: JER 16:42
DX: F41.9 Anxiety disorder, unspecified (principal)
CPT/HCPCS: 93005; 93010; 99283-25

== ENCOUNTER 2023-11-26 09:55 | Emergency (ER) | payer BC ==
[2023-11-26 10:18] VITALS: BP 177/89; PULSE 62; RESP 17; TEMP 98.7; BMI 30.4
== END 2023-11-26 11:50 | disposition home or self-care (01) ==
LOC: JERFT 09:55
PROC: 2W3CX1Z Immobilization of Right Lower Arm using Splint (ICD-10-PCS; principal; 2023-11-26)
DX: S62.324A Displaced fracture of shaft of fourth metacarpal bone, right hand, initial encounter for closed fracture (principal); W01.0XXA Fall on same level from slipping, tripping and stumbling without subsequent striking against object, initial encounter
CPT/HCPCS: 73110-TC-RT-FY; 73130-TC-RT-FY; 99283-25